=== PATIENT | female | born 1965 | race Two or more races ===

== ENCOUNTER 2017-12-15 13:05 | Emergency (ER) | payer MEDICAID ==
[~2017-12-15] VITALS: Ht 162.6 cm; Wt 63.0 kg
[2017-12-15 13:22] VITALS: BP 104/66
[2017-12-15 14:27] LABS: Basophils # (auto) 0.1 uL; Eosinophils # (auto) 0.2 uL; Eosinophils % (auto) 2.6 % (0.0-7.0); Hematocrit 36.5 % (36.0-46.0); Hemoglobin 12.1 g/dL (12.2-16.2); Lymphocytes # (auto) 1.7 uL; Lymphocytes % (auto) 27.4 % (10.0-50.0); Mean Corpuscular Hemoglobin 28.4 pg (28.0-32.0); Mean Corpuscular Hgb Conc. 33.2 g/dL (32.0-36.0); Mean Corpuscular Volume 85.4 fL (80.0-100.0); Monocytes # (auto) 0.5 uL; Monocytes % (auto) 8.9 % (0.0-12.0); Neutrophils # (auto) 3.7 uL; Neutrophils % (auto) 60.1 % (37.0-80.0); Platelet Count (auto) 284 10^3/uL (140-450); Red Blood Cells 4.27 10^6/uL (4.0-5.20); Red Cell Distribution Width 13.1 % (11.8-14.3); White Blood Cell 6.1 10^3/uL (4.4-10.8)
[2017-12-15 14:44] LABS: BUN/Creatinine Ratio 15.3; Calcium 8.6 mg/dL (8.5-10.1); Potassium 3.1 mmol/L (3.5-5.1)
[2017-12-15] MEDS ORDERED: POTASSIUM CHL 20 Meq TABLET PO ONE (16:00)
== END 2017-12-15 16:15 | disposition home or self-care (01) ==
LOC: ER 13:05
DX: M79.662 Pain in left lower leg (principal); M79.661 Pain in right lower leg; E11.9 Type 2 diabetes mellitus without complications; I10 Essential (primary) hypertension; F17.210 Nicotine dependence, cigarettes, uncomplicated; E87.6 Hypokalemia
CPT/HCPCS: 36415; 80048; 85025

== ENCOUNTER 2019-11-24 12:39 | Emergency (ER) | payer MEDICAID ==
[~2019-11-24] VITALS: Ht 162.6 cm; Wt 68.0 kg
[2019-11-24 12:46] VITALS: BP 122/72
== END 2019-11-24 14:29 | disposition home or self-care (01) ==
LOC: ER 12:39
DX: S60.862A Insect bite (nonvenomous) of left wrist, initial encounter (principal); S60.861A Insect bite (nonvenomous) of right wrist, initial encounter; S30.864A Insect bite (nonvenomous) of vagina and vulva, initial encounter; I10 Essential (primary) hypertension; E11.9 Type 2 diabetes mellitus without complications; F17.210 Nicotine dependence, cigarettes, uncomplicated; W57.XXXA Bitten or stung by nonvenomous insect and other nonvenomous arthropods, initial encounter; Y93.89 Activity, other specified; Y92.89 Other specified places as the place of occurrence of the external cause; Y99.8 Other external cause status

== ENCOUNTER 2019-12-20 14:24 | Emergency (ER) | payer MEDICAID ==
[~2019-12-20] VITALS: Ht 162.6 cm; Wt 68.0 kg
[2019-12-20 14:35] VITALS: BP 152/91
[2019-12-20] MEDS ORDERED: LIDOCAINE 1% HCL (LOCAL ANESTH.) INJ 20ML MDV IJ ONE (15:30)
[2019-12-20] MEDS ORDERED: cefTRIAXone SOD 1,000 MG VL IM ONE (15:30)
[2019-12-20] MEDS ORDERED: ACETAMINOPHEN 500 MG TAB PO ONE (15:45)
== END 2019-12-20 16:05 | disposition home or self-care (01) ==
LOC: ER 14:24
DX: N76.4 Abscess of vulva (principal); I10 Essential (primary) hypertension; E11.9 Type 2 diabetes mellitus without complications
CPT/HCPCS: 56405; 96372; 99284; J0696; J2001

== ENCOUNTER 2020-04-14 18:01 | Emergency (ER) | payer MEDICARE, MEDICAID ==
[~2020-04-14] VITALS: Ht 162.6 cm; Wt 65.8 kg
[2020-04-14 18:30] VITALS: BP 134/82
== END 2020-04-14 21:37 | disposition home or self-care (01) ==
LOC: ER 18:01
DX: T82.898A Other specified complication of vascular prosthetic devices, implants and grafts, initial encounter (principal); M86.9 Osteomyelitis, unspecified; E11.9 Type 2 diabetes mellitus without complications; F17.210 Nicotine dependence, cigarettes, uncomplicated; I11.0 Hypertensive heart disease with heart failure; I50.9 Heart failure, unspecified; X58.XXXA Exposure to other specified factors, initial encounter